=== PATIENT | male | born 1960 | race Caucasian/White ===

== ENCOUNTER 2021-02-11 13:22 | Emergency (ER) | payer OTHER, SELFPAY ==
--- NOTE | 2021-02-11 13:33 | PC.NURSE ---
pt states he just wants to be tested for covid to see if he has it. This RN explained that an ER visit doesn't guarantee he will be swab. Pt states he will go to a testing center. Instructed pt to come back if symptoms worsen.
== END 2021-02-12 05:12 | disposition left against medical advice (07) ==
LOC: ANHED 13:46
DX: Z53.21 Procedure and treatment not carried out due to patient leaving prior to being seen by health care provider (principal)
CPT/HCPCS: 99199